=== PATIENT | male | born 1980 | race African-American/Black ===

== ENCOUNTER 2019-10-06 06:04 | Emergency (ER) | payer MEDICAID, OTHER ==
[~2019-10-06] VITALS: Ht 175.3 cm; Wt 79.4 kg
[~2019-10-06 06:04] MED LIST: AMOXICILLIN500 MG ORAL; BACTRIM-DS1 EA ORAL; IBUPROFEN600 MG ORAL; NKM; NORCO 5-325 TA1 EACH PO
[2019-10-06 06:15] VITALS: BP 143/97
--- NOTE | 2019-10-06 06:15 | NUR ---
ED Nurse Note: Patient walked in to ER due sore throat, runny nose x 4 days. No SOB. Breathing even and unlabored. Afebrile. No stated medical history. VSS.
--- NOTE | 2019-10-06 06:37 | Emergency Room Report ---
History of Present Illness General Chief Complaint: Sore Throat Source: Patient Present Illness HPI Patient is a 39-year-old male presents after increased sore throat. He had increased nasal congestion. Multiple sick contacts at home with similar symptoms. Denies any fever. No vomiting. He had been sick for about 3 to 4 days. patient reports being marijuana smoker. Denies any chest or abdominal pain. Denies any other locations of illness. Allergies: Coded Allergies: No Known Allergies (Unverified , 03/15/13) Patient History Past Medical History: see triage record Reviewed Nursing Documentation: PMH: Agreed; PSxH: Agreed Nursing Documentation-PMH Past Medical History: No Stated History Review of Systems All Other Systems: negative except mentioned in HPI Physical Exam Vital Signs Date Time Temp Pulse Resp B/P (MAP) Pulse Ox O2 Delivery O2 Flow Rate FiO2 10/06/19 06:14 98.1 93 15 143/97 (112) 96 Room Air General Appearance: well appearing, no apparent distress, alert, GCS 15 Head: normocephalic, atraumatic ENT: hearing grossly normal, normal pharynx, normal voice Neck: full range of motion, supple Respiratory: chest non-tender, lungs clear, normal breath sounds, no respiratory distress, speaking full sentences Cardiovascular #1: normal peripheral pulses, no edema Gastrointestinal: normal inspection Musculoskeletal: normal inspection, back normal, no calf tenderness Neurologic: normal inspection, alert, oriented x3, responsive, material reclaimer III-XII nml as tested, normal gait Psychiatric: mood/affect normal Skin: no rash Medical Decision Making Diagnostic Impression: Primary Impression: URI, acute ER Course Patient presented for sore throat and nasal congestion. Differential diagnosis include was not limited to pharyngitis, viral URI, seasonal allergies among others. Patient has a benign exam and does not appear to require any imaging or laboratory testing at this time. Patient's exam and history is most consistent with a viral pharyngitis. The patient is advised to follow up with primary care doctor in 1-2 days. Patient is advised to return if any worsening condition or if any changes in status that are concerning. This report is dictated with [employer] software which may occasionally lead to discrepancies related to use of this software. Last Vital Signs Date Time Temp Pulse Resp B/P (MAP) Pulse Ox O2 Delivery O2 Flow Rate FiO2 10/06/19 06:15 98.1 96 15 143/97 96 Room Air Status: improved Disposition: HOME, SELF-CARE Condition: Stable Scripts Loratadine (CLARITIN) 10 Mg Capsule 10 MG ORAL DAILY, #30 CAP Prov: Nazaroi Stephens MD 10/06/19 Ibuprofen* (MOTRIN*) 400 Mg Tablet 400 MG ORAL Q8H, #30 TAB 0 Refills Prov: Nazario Stephens MD 10/06/19 Referrals: NON PHYSICIAN (PCP) Nazario Stephens MD Oct 06, 2019 06:37
[2019-10-06] MEDS ORDERED: CLARITIN10 M2 ORAL (06:38)
[2019-10-06] MEDS ORDERED: IBUPROFEN400 MG ORAL (06:38)
[2019-10-06 06:49] VITALS: BP 143/97
--- NOTE | 2019-10-06 06:49 | NUR ---
ED Nurse Note: Pt cleared by ERMD for discharge. DC instructions was given and explained to pt and verbalized understanding of teachings. Prescriptions are electronically sent to the pharmacy. All medical deviecs such as ID band removed. Pt is AAO x4, ambulatory and left with all personal belongings.
== END 2019-10-06 06:49 | disposition home or self-care (01) ==
LOC: EMR 06:28
DX: J06.9 Acute upper respiratory infection, unspecified (principal); F12.90 Cannabis use, unspecified, uncomplicated
CPT/HCPCS: 99282